=== PATIENT | female | born 2000 | race Caucasian/White ===

== ENCOUNTER → 2019-12-08 15:52 | Outpatient (BNVA) | payer OTHER, SELFPAY | PROVIDERS: Family Provider Pediatrics Adolescent Medicine; PCP Nurse Practitioner Family; Visit Provider Nurse Practitioner Family | DX: Z20.828 Contact with and (suspected) exposure to other viral communicable diseases (principal) | CPT/HCPCS: 87635 ==

== ENCOUNTER → 2021-01-08 10:45 | Outpatient (BNVA) | payer SELFPAY | PROVIDERS: Family Provider Pediatrics Adolescent Medicine; Visit Provider Family Medicine | DX: Z20.828 Contact with and (suspected) exposure to other viral communicable diseases (principal) | CPT/HCPCS: 87635 ==

== ENCOUNTER 2021-08-03 08:40 | Outpatient (CLI) | payer OTHER, SELFPAY ==
--- NOTE | 2021-08-03 09:30 | US_ITS ---
WS: [id number] US soft tissue/extremity [id number] REASON FOR EXAM: S50.859A - Superficial foreign body of unspecified forear... FINDINGS: Nonspecific ill-defined area of increased echogenicity in the subcutaneous fat underlying the area of clinical concern. The area measures approximately 6 mm x 18 mm. No foreign body identified within th is region. No focal fluid collection. US/US soft tissue/extremity [id number] IMPRESSION: Nonspecific subcutaneous abnormality as above.
== END 2021-08-03 08:41 | disposition home or self-care (01) ==
PROVIDERS: Visit Provider Nurse Practitioner Family
DX: S50.859A Superficial foreign body of unspecified forearm, initial encounter (principal); L08.9 Local infection of the skin and subcutaneous tissue, unspecified; X58.XXXA Exposure to other specified factors, initial encounter
CPT/HCPCS: 76882

== ENCOUNTER → 2024-12-20 10:44 | Outpatient (BNVA) | payer OTHER, SELFPAY | PROVIDERS: Visit Provider Obstetrics & Gynecology | DX: Z01.419 Encounter for gynecological examination (general) (routine) without abnormal findings (principal) | CPT/HCPCS: 87624 ==